=== PATIENT | male | born 1970 | race Caucasian/White ===

== ENCOUNTER → 2017-07-11 | Outpatient (CLI) | payer MEDICAID | LOC: FIMAGING 10:06 | PROVIDERS: ATTEND Psychiatry & Neurology Neurology | DX: G44.309 Post-traumatic headache, unspecified, not intractable (principal); R53.1 Weakness ==

== ENCOUNTER → 2017-07-27 | Outpatient (CLI) | payer MEDICAID ==
--- NOTE | 2017-07-27 13:02 | CPEEG ---
[f rep st] ELECTROENCEPHALOGRAM EEG DATE OF STUDY: 07/27/2017 INTERPRETATION: Normal EEG during wakefulness and brief drowsiness. There were no potentially epile ptogenic abnormalities present during recording. REPORT: This EEG contains 10 Hz alpha activity to the posterior head regions. There was no abnormal activation at rest or during photic stimulation or hyperventilation. The patient became drowsy brie fly during the study. There was no abnormal activation during brief drowsiness or during times of ar ousal. /[id number]/MODL
== END ==
LOC: FCPNEURO 09:48
PROVIDERS: ATTEND Psychiatry & Neurology Neurology
DX: G44.309 Post-traumatic headache, unspecified, not intractable (principal); R53.1 Weakness